=== PATIENT | male | born 2000 | race Caucasian/White ===

== ENCOUNTER 2025-06-04 06:56 | Outpatient (RCR) | payer BC, SELFPAY | END 2025-06-04 23:59 | disposition home or self-care (01) | LOC: ROT 06:56 | PROVIDERS: ATTENDING PHYSICIAN Student in an Organized Health Care Education/Training Program; FAMILY PHYSICIAN Internal Medicine | DX: I89.0 Lymphedema, not elsewhere classified (principal); Z73.6 Limitation of activities due to disability | CPT/HCPCS: 97110; 97140; 97166; 97535 ==

== ENCOUNTER 2025-07-02 07:29 | Outpatient (RCR) | payer BC, SELFPAY | END 2025-07-09 23:59 | disposition home or self-care (01) | LOC: RPT 07:29 | PROVIDERS: ATTENDING PHYSICIAN Student in an Organized Health Care Education/Training Program; FAMILY PHYSICIAN Internal Medicine | DX: Z47.89 Encounter for other orthopedic aftercare (principal); I89.0 Lymphedema, not elsewhere classified; Z73.6 Limitation of activities due to disability; M79.602 Pain in left arm | CPT/HCPCS: 97110; 97112; 97140; 97162; 97530 ==